=== PATIENT | female | born 1955 | race Caucasian/White ===

== ENCOUNTER 2017-07-04 17:40 | Emergency (ER) | payer BC ==
[2017-07-04] MEDS ORDERED: Cefuroxime 250 MG Tab PO ONE (17:41)
[2017-07-04 17:49] VITALS: BP 130/61
[2017-07-04] MEDS ORDERED: methylPREDNISolone Acetate 80 MG/ML SDV IM ONE (17:55)
[2017-07-04] MEDS ORDERED: cefTRIAXone 1 GM Vial IM ONE (17:55)
[2017-07-04] MEDS ORDERED: Lidocaine 1% 20 ML MDV INJECT ONE (17:58)
--- NOTE | 2017-07-04 18:00 | EDM.PDOC ---
ED HPI GENERAL MEDICAL PROBLEM - General Chief Complaint: Respiratory Problem Stated Complaint: COUGH Time Seen by Provider: 07/04/17 17:48 Source of Information: Reports: Patient History Limitations: Reports: No Limitations - History of Present Illness INITIAL COMMENTS - FREE TEXT/NARRATIVE: Patient presents today with concerns with a cough. has not felt well over the last few days. Feels like has had a high fever. She has right sided chest discomfort with coughing and taking a deep breath. was very ill in April for about a week and questions if she possibly had infection in her lung at that time and it hasn't completely cleared. Does have chronic sinus congestion and drainage. Has been coughing more frequently with thick green sputum production. Does feel more fatigue. No shortness of breath or wheezing. Onset: Gradual Duration: Day(s): Location: Reports: Chest Quality: Reports: Ache, Dull Severity: Moderate Worsens with: Reports: Breathing, Other (cough) Associated Symptoms: Reports: Cough, cough w sputum, Fever/Chills, Malaise, Weakness. Denies: Nausea/Vomiting, Shortness of Breath Right Upper Chest Pain Score (Numeric/FACES): 7 - Related Data Allergies Allergy/AdvReac Type Severity Reaction Status Date / Time azithromycin Allergy Vomiting Verified 07/04/17 17:42 Home Meds: Home Meds Amitriptyline [Elavil] 10 mg PO BEDTIME PRN 07/04/17 [History] Citalopram Hydrobromide [Celexa] 40 mg PO DAILY 07/04/17 [History] Naproxen [Naprosyn] 500 mg PO Q6H PRN 07/04/17 [History] Pravastatin [Pravachol] 20 mg PO BEDTIME 07/04/17 [History] Past Medical History Cardiovascular History: Reports: High Cholesterol Social & Family History - Tobacco Use Smoking Status *Q: Never Smoker ED ROS GENERAL - Review of Systems Review Of Systems: See Below Constitutional: Reports: Fever, Chills, Malaise, Weakness, Fatigue, Decreased Appetite HEENT: Reports: Rhinitis, Sinus Problem. Denies: Throat Swelling Respiratory: Reports: Cough, Sputum. Denies: Shortness of Breath, Wheezing Cardiovascular: Denies: Chest Pain, Edema, Lightheadedness Endocrine: Reports: Fatigue GI/Abdominal: Denies: Abdominal Pain, Nausea, Vomiting : Reports: No Symptoms Musculoskeletal: Reports: No Symptoms Skin: Reports: No Symptoms ED EXAM, GENERAL - Physical Exam Exam: See Below Exam Limited By: No Limitations General Appearance: Alert, WD/WN, No Apparent Distress Ears: Normal External Exam, Normal Canal, Normal TMs Nose: Normal Inspection, Normal Mucosa, No Blood Throat/Mouth: Normal Inspection, Normal Oropharynx Head: Normocephalic Neck: Normal Inspection, Supple, Non-Tender Respiratory/Chest: No Respiratory Distress, Decreased Breath Sounds Cardiovascular: Regular Rate, Rhythm GI/Abdominal: Normal Bowel Sounds, Soft, Non-Tender Extremities: Normal Inspection, Normal Capillary Refill Neurological: Alert, Oriented Psychiatric: Normal Affect, Normal Mood Skin Exam: Warm, Dry Course - Vital Signs Last Recorded V/S: Last Vital Signs Temp 101.0 F H 07/04/17 17:45 Pulse 112 H 07/04/17 17:45 Resp 20 07/04/17 17:45 BP 130/61 07/04/17 17:45 Pulse Ox 97 07/04/17 17:45 Departure - Departure Time of Disposition: 18:02 Disposition: Home, Self-Care 01 Condition: Good Clinical Impression: Bronchitis, Pleurisy - Discharge Information Additional Instructions: 1. Rest 2. Push fluids 3. Tylenol or ibuprofen for fever or discomfort 4. Ceftin 250 mg twice a day to start tomorrow 5. Follow up in clinic if any persisting concerns.
[2017-07-04] MEDS ORDERED: Take Home: Cefuroxime 250 MG Tab, 2 Tab Pack PO ONE (18:01)
== END 2017-07-04 18:28 | disposition home or self-care (01) ==
LOC: CC.ED 17:40
DX: J40 Bronchitis, not specified as acute or chronic (principal); R09.1 Pleurisy; E78.00 Pure hypercholesterolemia, unspecified; Z88.1 Allergy status to other antibiotic agents
CPT/HCPCS: 96372; 99282; A9270; J0696; J1040